=== PATIENT | male | born 1945 | race African-American/Black ===

== ENCOUNTER 2016-06-06 10:00 | Outpatient (RCR) | payer OTHER ==
[~2016-06-06 10:00] MED LIST: HYDROCHLOROTH12.5 MG ORAL
== END 2016-06-07 | disposition home or self-care (01) ==
LOC: PTY 10:00
DX: M54.5 Low back pain (principal); I10 Essential (primary) hypertension

== ENCOUNTER 2016-06-19 10:13 | Outpatient (RCR) | payer OTHER | END 2016-07-07 | disposition home or self-care (01) | LOC: PTY 10:13 | DX: M54.5 Low back pain (principal) ==

== ENCOUNTER 2016-07-10 10:16 | Outpatient (RCR) | payer OTHER | END 2016-08-07 | disposition home or self-care (01) | LOC: PTY 10:16 | DX: M54.5 Low back pain (principal) ==